=== PATIENT | male | born 1985 | race Caucasian/White ===

== ENCOUNTER 2016-07-06 13:54 | Emergency (ER) | payer SELFPAY ==
[~2016-07-06] VITALS: Ht 182.8 cm; Wt 102.1 kg
[2016-07-06 14:19] LABS: BASO % 0.4 % (0.0-1.0); EOS # 0.1 10*3/uL (0.0-0.4); EOS % 0.8 % (1.0-4.0); HEMATOCRIT 44.5 % (42.0-52.0); HEMOGLOBIN 15.6 g/dl (14.0-18.0); MEAN CELL VOLUME 85.2 fl (80.0-94.0); MEAN CORPUSCULAR HGB 29.9 pg (27.0-31.0); MEAN CORPUSCULAR HGB CONC 35.1 g/dl (33.0-37.0); MONO # 0.5 10*3/uL (0.1-1.0); MONO % 5.8 % (3.0-9.0); NEUT # 6.3 10*3/uL (2.3-7.9); NEUT % 70.9 % (47.0-73.0); PLATELET COUNT AUTOMATED 257 10*3/uL (130-400); RED BLOOD COUNT 5.22 10*6/uL (4.50-5.90); RED CELL DISTRI WIDTH 11.9 % (0-14.5); WHITE BLOOD COUNT 8.9 10*3/uL (4.8-10.8)
[2016-07-06 14:24] LABS: BILIRUBIN NEGATIVE (NEGATIVE); BLOOD 1+ (NEGATIVE); CLARITY CLEAR (CLEAR); COLOR YELLOW (YELLOW); GLUCOSE NEGATIVE (NEGATIVE); KETONE NEGATIVE (NEGATIVE); LEUKO ESTERASE NEGATIVE (NEGATIVE); NITRITE NEGATIVE (NEGATIVE); PH 6.5 (5.0-9.0); PROTEIN NEGATIVE (NEGATIVE); UROBILINOGEN 0.2 E.U./dl (0.2-1.0)
[2016-07-06 14:35] LABS: BACTERIA TRACE; MUCOUS TRACE; URINE REFLEX COMMENT YES (NO); WBC 0-2 wbc/hpf (0-5)
[2016-07-06 14:38] LABS: ALBUMIN 4.2 gm/dl (3.1-4.5); ALKALINE PHOSPHATASE 88 U/L (45-117); BILIRUBIN, TOTAL 0.4 mg/dl (0.2-1.0); BUN 11 mg/dl (7-24); CARBON DIOXIDE 27 mmol/L (21-32); CHLORIDE 107 mmol/L (98-107); EST GLOM FILT AFRICAN AMERICAN > 60 ml/min; GLUCOSE 100 mg/dL (65-99); POTASSIUM 3.9 mmol/L (3.5-5.1); SGOT/AST 11 IU/L (3-35); SGPT/ALT 21 U/L (12-78); SODIUM 140 mmol/L (136-145); TOTAL PROTEIN 7.6 gm/dL (6.4-8.2)
[2016-07-06] MEDS ORDERED: PERCOCET 325 MG1 TA2 PO (16:13)
[2016-07-06] MEDS ORDERED: FLOMAX0.4 MG PO (16:13)
[2016-07-06] MEDS ORDERED: BACTRIM DS 8001 TA1 PO (16:13)
[2016-07-06] MEDS ORDERED: ZOFRAN4 MG PO (16:13)
== END 2016-07-06 16:21 | disposition home or self-care (01) ==
LOC: ED 13:54
PROVIDERS: Nurse Practitioner Family
DX: N20.0 Calculus of kidney (principal); N13.30 Unspecified hydronephrosis; R03.0 Elevated blood-pressure reading, without diagnosis of hypertension; Z88.0 Allergy status to penicillin

== ENCOUNTER 2017-07-08 10:56 | Emergency (ER) | payer SELFPAY ==
[~2017-07-08] VITALS: Ht 182.8 cm; Wt 102.1 kg
[~2017-07-08 10:56] MED LIST: BACTRIM DS 8001 TA1 PO; FLOMAX0.4 MG PO; PERCOCET 325 MG1 TA2 PO; ZOFRAN4 MG PO
[2017-07-08 11:51] LABS: BASO % 0.4 % (0.0-1.0); EOS % 0.5 % (1.0-4.0); HEMATOCRIT 45.7 % (42.0-52.0); HEMOGLOBIN 15.9 g/dl (14.0-18.0); LYMPH # 1.2 10*3/uL (1.3-4.4); LYMPH % 15.6 % (27.0-41.0); MEAN CELL VOLUME 85.6 fl (80.0-94.0); MEAN CORPUSCULAR HGB 29.8 pg (27.0-31.0); MEAN CORPUSCULAR HGB CONC 34.8 g/dl (33.0-37.0); MEAN PLATELET VOLUME 9.2 fl (9.6-12.3); MONO # 0.6 10*3/uL (0.1-1.0); MONO % 7.4 % (3.0-9.0); NEUT % 75.7 % (47.0-73.0); PLATELET COUNT AUTOMATED 260 10*3/uL (130-400); RED BLOOD COUNT 5.34 10*6/uL (4.50-5.90); RED CELL DISTRI WIDTH 11.9 % (0-14.5)
[2017-07-08 11:51] LABS: BILIRUBIN 1+ (NEGATIVE); BLOOD 2+ (NEGATIVE); CLARITY SL CLOUDY (CLEAR); COLOR YELLOW (YELLOW); GLUCOSE NEGATIVE (NEGATIVE); KETONE 1+ (NEGATIVE); LEUKO ESTERASE TRACE (NEGATIVE); NITRITE NEGATIVE (NEGATIVE); PH 6.5 (5.0-9.0)
[2017-07-08 12:06] LABS: BACTERIA 1+; MUCOUS 1+; RBC 31-40 rbc/hpf (0-2)
[2017-07-08 12:06] LABS: ALBUMIN 4.4 gm/dl (3.1-4.5); ALKALINE PHOSPHATASE 84 U/L (45-117); BUN 8 mg/dl (7-24); CHLORIDE 105 mmol/L (98-107); CREATININE 1.03 mg/dL (0.70-1.30); SGOT/AST 12 IU/L (3-35); SGPT/ALT 21 U/L (12-78); SODIUM 141 mmol/L (136-145)
[2017-07-08] MEDS ORDERED: LEVOFLOXACIN500 MG PO (14:26)
== END 2017-07-08 14:38 | disposition home or self-care (01) ==
LOC: ED 10:56
PROVIDERS: Emergency Medicine
DX: N39.0 Urinary tract infection, site not specified (principal); N20.0 Calculus of kidney; Z88.0 Allergy status to penicillin

== ENCOUNTER 2018-03-11 16:23 | Emergency (ER) | payer OTHER ==
[~2018-03-11] VITALS: Ht 182.8 cm; Wt 99.8 kg
[~2018-03-11 16:23] MED LIST changes: +LEVOFLOXACIN500 MG PO
[2018-03-11] MEDS ORDERED: Motrin,Rufen800 MG PO (19:02)
== END 2018-03-11 19:20 | disposition home or self-care (01) ==
LOC: ED 16:23
DX: T70.0XXA Otitic barotrauma, initial encounter (principal); S20.212A Contusion of left front wall of thorax, initial encounter; S63.502A Unspecified sprain of left wrist, initial encounter; Z88.0 Allergy status to penicillin; V89.2XXA Person injured in unspecified motor-vehicle accident, traffic, initial encounter; W22.11XA Striking against or struck by driver side automobile airbag, initial encounter; Y93.I9 Activity, other involving external motion; Y92.488 Other paved roadways as the place of occurrence of the external cause; Y99.8 Other external cause status

== ENCOUNTER 2018-05-29 10:25 | Emergency (ER) | payer SELFPAY ==
[~2018-05-29] VITALS: Ht 182.8 cm; Wt 102.1 kg
--- NOTE | ~2018-05-29 | EKG ---
[place], [place] ELECTROCARDIOGRAM REPORT NAME: CELESTINA OREILLY UNIT #: [id number] ROOM: DOCTOR: SANCHEZ DRAFT REPORT BIRTHDATE: [birth year] [facility] Test Date: 2018-05-29 Test Time: 12:15:15 Pat Name: CELESTINA OREILLY Department: Room: Gender: Vaccinator: Chaya Schrader : 1985 Requested By: IKE HARRIS Order Number: [id number] Reading MD: Keo Gonzalez MD Measurements Intervals [place] Rate: 65 P: 3 TX: 144 QRS: 78 QRSD: 96 T: 21 QT: 376 QTc: 391 Interpretive Statements Sinus rhythm ST elev, probable normal early repol pattern Electronically Signed On 05-29-2018 13:27:24 PDT by Keo Gonzalez MD CM:[email or web address]:ELECTROCARDIOGRAM REPORT [id number] IKE DURAN DRAFT REPORT IKE HARRIS DO
[~2018-05-29 10:25] MED LIST changes: +Motrin,Rufen800 MG PO
[2018-05-29 11:12] LABS: BASO # 0.1 10*3/uL (0.0-0.1); BASO % 0.7 % (0.0-1.0); EOS # 0.2 10*3/uL (0.0-0.4); EOS % 2.2 % (1.0-4.0); HEMATOCRIT 45.6 % (42.0-52.0); HEMOGLOBIN 15.7 g/dl (14.0-18.0); LYMPH # 1.6 10*3/uL (1.3-4.4); LYMPH % 24.1 % (27.0-41.0); MEAN CELL VOLUME 87.7 fl (80.0-94.0); MEAN CORPUSCULAR HGB 30.2 pg (27.0-31.0); MEAN CORPUSCULAR HGB CONC 34.4 g/dl (33.0-37.0); MEAN PLATELET VOLUME 8.9 fl (9.6-12.3); MONO # 0.6 10*3/uL (0.1-1.0); NEUT # 4.3 10*3/uL (2.3-7.9); NEUT % 63.7 % (47.0-73.0); PLATELET COUNT AUTOMATED 225 10*3/uL (130-400); RED CELL DISTRI WIDTH 11.8 % (0-14.5); WHITE BLOOD COUNT 6.8 10*3/uL (4.8-10.8)
[2018-05-29 11:36] LABS: ALBUMIN 3.9 gm/dl (3.1-4.5); ALKALINE PHOSPHATASE 78 U/L (45-117); BUN 12 mg/dl (7-24); CHLORIDE 106 mmol/L (98-107); CREATININE 1.01 mg/dL (0.70-1.30); PHOSPHOROUS 3.3 mg/dL (2.5-4.9); SGOT/AST 12 IU/L (3-35); SGPT/ALT 23 U/L (12-78); SODIUM 140 mmol/L (136-145)
[2018-05-29 11:39] LABS: TROPONIN I < 0.015 ng/ml (<0.045)
== END 2018-05-29 13:15 | disposition home or self-care (01) ==
LOC: ED 10:25
PROVIDERS: Internal Medicine
DX: R55 Syncope and collapse (principal); R07.89 Other chest pain; R51 Headache; Z87.442 Personal history of urinary calculi; Z88.0 Allergy status to penicillin; Z79.899 Other long term (current) drug therapy

== ENCOUNTER 2019-01-04 16:35 | Emergency (ER) | payer SELFPAY ==
[~2019-01-04] VITALS: Ht 182.8 cm; Wt 97.5 kg
[2019-01-05 18:08] LABS: GONOCOCCUS BY NAA Negative (Negative)
== END 2019-01-04 18:18 | disposition home or self-care (01) ==
LOC: ED 16:35
PROVIDERS: Nurse Practitioner Family
DX: G89.29 Other chronic pain (principal); M25.561 Pain in right knee; J45.909 Unspecified asthma, uncomplicated; Z20.2 Contact with and (suspected) exposure to infections with a predominantly sexual mode of transmission; Z88.0 Allergy status to penicillin; Z79.899 Other long term (current) drug therapy

== ENCOUNTER 2019-03-03 17:04 | Emergency (ER) | payer SELFPAY ==
[~2019-03-03] VITALS: Ht 182.8 cm; Wt 95.3 kg
[2019-03-03 17:56] LABS: BASO % 0.7 % (0.0-1.0); EOS # 0.2 10*3/uL (0.0-0.4); EOS % 2.6 % (1.0-4.0); HEMATOCRIT 46.9 % (42.0-52.0); HEMOGLOBIN 15.9 g/dl (14.0-18.0); LYMPH # 1.9 10*3/uL (1.3-4.4); LYMPH % 32.1 % (27.0-41.0); MEAN CELL VOLUME 86.2 fl (80.0-94.0); MEAN CORPUSCULAR HGB 29.2 pg (27.0-31.0); MEAN CORPUSCULAR HGB CONC 33.9 g/dl (33.0-37.0); MEAN PLATELET VOLUME 8.8 fl (9.6-12.3); MONO # 0.4 10*3/uL (0.1-1.0); MONO % 7.6 % (3.0-9.0); NEUT # 3.3 10*3/uL (2.3-7.9); NEUT % 56.8 % (47.0-73.0); PLATELET COUNT AUTOMATED 291 10*3/uL (130-400); RED BLOOD COUNT 5.44 10*6/uL (4.50-5.90); RED CELL DISTRI WIDTH 11.9 % (0-14.5); WHITE BLOOD COUNT 5.8 10*3/uL (4.8-10.8)
[2019-03-03 18:14] LABS: ALBUMIN 4.6 gm/dl (3.1-4.5); ALKALINE PHOSPHATASE 105 U/L (45-117); BUN 10 mg/dl (7-24); CHLORIDE 105 mmol/L (98-107); CREATININE 0.97 mg/dL (0.70-1.30); POTASSIUM 4.1 mmol/L (3.5-5.1); SGOT/AST 32 IU/L (3-35); SGPT/ALT 61 U/L (12-78); SODIUM 139 mmol/L (136-145); TOTAL PROTEIN 8.2 gm/dL (6.4-8.2)
[2019-03-03 18:16] LABS: ACT PARTIAL THROMBO TIME 26.2 SECONDS (20.0-32.1); INTERNATIONAL NORM RATIO 0.9 (2.0-3.5)
[2019-03-03 18:17] LABS: TROPONIN I < 0.015 ng/ml (<0.045)
[2019-03-03] MEDS ORDERED: MUCINEX1200 M1 PO (20:27)
[2019-03-03] MEDS ORDERED: PROVENTIL HFA6.7 GM INH (20:27)
[2019-03-03] MEDS ORDERED: PREDNISONE20 M1 PO (20:27)
== END 2019-03-03 21:29 | disposition home or self-care (01) ==
LOC: ED 17:04
PROVIDERS: Emergency Medicine
DX: J20.9 Acute bronchitis, unspecified (principal); Z88.0 Allergy status to penicillin

== ENCOUNTER 2019-04-02 09:44 | Emergency (ER) | payer OTHER ==
[~2019-04-02] VITALS: Ht 182.9 cm; Wt 102.1 kg
[~2019-04-02 09:44] MED LIST changes: +MUCINEX1200 M1 PO; +PREDNISONE20 M1 PO; +PROVENTIL HFA6.7 GM INH
[2019-04-02 10:51] LABS: BASO % 0.6 % (0.0-1.0); EOS # 0.1 10*3/uL (0.0-0.4); EOS % 1.1 % (1.0-4.0); HEMATOCRIT 45.3 % (42.0-52.0); HEMOGLOBIN 15.6 g/dl (14.0-18.0); LYMPH # 1.3 10*3/uL (1.3-4.4); LYMPH % 21.7 % (27.0-41.0); MEAN CELL VOLUME 85.8 fl (80.0-94.0); MEAN CORPUSCULAR HGB 29.5 pg (27.0-31.0); MEAN CORPUSCULAR HGB CONC 34.4 g/dl (33.0-37.0); MONO # 0.6 10*3/uL (0.1-1.0); MONO % 9.1 % (3.0-9.0); NEUT # 4.1 10*3/uL (2.3-7.9); NEUT % 67.2 % (47.0-73.0); PLATELET COUNT AUTOMATED 274 10*3/uL (130-400); RED BLOOD COUNT 5.28 10*6/uL (4.50-5.90); RED CELL DISTRI WIDTH 11.9 % (0-14.5); WHITE BLOOD COUNT 6.2 10*3/uL (4.8-10.8)
[2019-04-02 11:16] LABS: ALBUMIN 4.3 gm/dl (3.1-4.5); ALKALINE PHOSPHATASE 74 U/L (45-117); BUN 12 mg/dl (7-24); CHLORIDE 106 mmol/L (98-107); CREATININE 1.09 mg/dL (0.70-1.30); POTASSIUM 3.6 mmol/L (3.5-5.1); SGOT/AST 14 IU/L (3-35); SGPT/ALT 31 U/L (12-78); SODIUM 137 mmol/L (136-145); TOTAL PROTEIN 7.4 gm/dL (6.4-8.2)
[2019-04-02 11:26] LABS: TROPONIN I < 0.015 ng/ml (<0.045)
[2019-04-02] MEDS ORDERED: IBU800 MG PO (11:39)
[2019-04-02] MEDS ORDERED: TESSALON PERLE100 MG PO (11:39)
[2019-04-02] MEDS ORDERED: ZITHROMAX500 MG PO (11:39)
[2019-04-02] MEDS ORDERED: PREDNISONE50 MG PO (11:39)
== END 2019-04-02 11:47 | disposition home or self-care (01) ==
LOC: ED 09:44
PROVIDERS: Nurse Practitioner Family
DX: J45.901 Unspecified asthma with (acute) exacerbation (principal); R09.1 Pleurisy; F17.200 Nicotine dependence, unspecified, uncomplicated; Z88.0 Allergy status to penicillin; Z79.899 Other long term (current) drug therapy

== ENCOUNTER 2019-07-26 21:25 | Emergency (ER) | payer OTHER ==
[~2019-07-26] VITALS: Ht 182.8 cm; Wt 97.5 kg
[~2019-07-26 21:25] MED LIST changes: +IBU800 MG PO; +PREDNISONE50 MG PO; +TESSALON PERLE100 MG PO; +ZITHROMAX500 MG PO
== END 2019-07-26 22:21 | disposition home or self-care (01) ==
LOC: ED 21:25
DX: T15.82XA Foreign body in other and multiple parts of external eye, left eye, initial encounter (principal); J45.909 Unspecified asthma, uncomplicated; Z88.0 Allergy status to penicillin; Z79.899 Other long term (current) drug therapy; X58.XXXA Exposure to other specified factors, initial encounter; Y93.89 Activity, other specified; Y92.89 Other specified places as the place of occurrence of the external cause; Y99.8 Other external cause status

== ENCOUNTER 2019-10-11 10:26 | Emergency (ER) | payer OTHER ==
[2019-10-11 10:56] LABS: BASO % 0.7 % (0.0-1.0); EOS # 0.1 10*3/uL (0.0-0.4); EOS % 2.2 % (1.0-4.0); LYMPH # 1.4 10*3/uL (1.3-4.4); LYMPH % 25.2 % (27.0-41.0); MEAN CELL VOLUME 86.5 fl (80.0-94.0); MEAN CORPUSCULAR HGB CONC 33.6 g/dl (33.0-37.0); MEAN PLATELET VOLUME 9.1 fl (9.6-12.3); MONO # 0.4 10*3/uL (0.1-1.0); MONO % 7.6 % (3.0-9.0); NEUT # 3.5 10*3/uL (2.3-7.9); NEUT % 64.1 % (47.0-73.0); PLATELET COUNT AUTOMATED 250 10*3/uL (130-400); RED CELL DISTRI WIDTH 11.7 % (0-14.5); WHITE BLOOD COUNT 5.5 10*3/uL (4.8-10.8)
[2019-10-11 11:08] LABS: ACT PARTIAL THROMBO TIME 26.6 SECONDS (20.0-32.1)
[2019-10-11 11:15] LABS: ALBUMIN 3.8 gm/dl (3.1-4.5); ALKALINE PHOSPHATASE 76 U/L (45-117); BUN 11 mg/dl (7-24); CHLORIDE 109 mmol/L (98-107); CREATININE 0.98 mg/dL (0.70-1.30); POTASSIUM 4.1 mmol/L (3.5-5.1); SGOT/AST 16 IU/L (3-35); SGPT/ALT 24 U/L (12-78); SODIUM 139 mmol/L (136-145); TOTAL PROTEIN 7.2 gm/dL (6.4-8.2)
[2019-10-11 11:16] LABS: LIPASE 49 U/L (73-393)
[2019-10-11 11:18] LABS: TROPONIN I < 0.015 ng/ml (<0.045)
[2019-10-11] MEDS ORDERED: Motrin,Rufen800 MG PO (12:35)
== END 2019-10-11 12:50 | disposition home or self-care (01) ==
LOC: ED 10:26
PROVIDERS: Emergency Medicine
DX: R07.89 Other chest pain (principal); J45.909 Unspecified asthma, uncomplicated

== ENCOUNTER 2020-10-12 09:42 | Emergency (ER) | payer SELFPAY ==
[~2020-10-12] VITALS: Ht 182.8 cm; Wt 88.5 kg
[2020-10-12 10:57] LABS: BASO % 0.5 % (0.0-1.0); EOS # 0.1 10*3/uL (0.0-0.4); EOS % 2.4 % (1.0-4.0); HEMATOCRIT 43.3 % (42.0-52.0); LYMPH # 1.7 10*3/uL (1.3-4.4); LYMPH % 28.7 % (27.0-41.0); MEAN CELL VOLUME 88.2 fl (80.0-94.0); MEAN CORPUSCULAR HGB 29.7 pg (27.0-31.0); MEAN CORPUSCULAR HGB CONC 33.7 g/dl (33.0-37.0); MEAN PLATELET VOLUME 8.9 fl (9.6-12.3); MONO # 0.5 10*3/uL (0.1-1.0); MONO % 8.9 % (3.0-9.0); NEUT # 3.5 10*3/uL (2.3-7.9); NEUT % 59.2 % (47.0-73.0); PLATELET COUNT AUTOMATED 233 10*3/uL (130-400); RED BLOOD COUNT 4.91 10*6/uL (4.50-5.90); RED CELL DISTRI WIDTH 11.9 % (0-14.5); WHITE BLOOD COUNT 5.9 10*3/uL (4.8-10.8)
[2020-10-12 11:11] LABS: ALBUMIN 4.2 gm/dl (3.1-4.5); ALKALINE PHOSPHATASE 73 U/L (45-117); BUN 12 mg/dl (7-24); CHLORIDE 106 mmol/L (98-107); CREATININE 0.97 mg/dL (0.70-1.30); LIPASE 51 U/L (73-393); SGOT/AST 19 IU/L (3-35); SGPT/ALT 28 U/L (12-78); SODIUM 138 mmol/L (136-145); TOTAL PROTEIN 7.3 gm/dL (6.4-8.2)
[2020-10-12 13:50] LABS: BILIRUBIN Negative (Negative); BLOOD Negative (Negative); CLARITY Clear (Clear); COLOR Yellow (Yellow); GLUCOSE Negative (Negative); KETONE Negative (Negative); LEUKO ESTERASE Negative (Negative); NITRITE Negative (Negative); SPECIFIC GRAVITY >= 1.030 (1.001-1.030)
== END 2020-10-12 15:01 | disposition home or self-care (01) ==
LOC: ED 09:42
PROVIDERS: Emergency Medicine
DX: R10.31 Right lower quadrant pain (principal); Z88.0 Allergy status to penicillin

== ENCOUNTER 2022-07-11 08:15 | Emergency (ER) | payer OTHER ==
[~2022-07-11] VITALS: Ht 182.8 cm; Wt 104.3 kg
== END 2022-07-11 09:19 | disposition home or self-care (01) ==
LOC: ED 08:15
DX: S05.01XA Injury of conjunctiva and corneal abrasion without foreign body, right eye, initial encounter (principal); H20.9 Unspecified iridocyclitis; Z88.0 Allergy status to penicillin; W22.8XXA Striking against or struck by other objects, initial encounter; Y93.89 Activity, other specified; Y92.89 Other specified places as the place of occurrence of the external cause; Y99.8 Other external cause status

== ENCOUNTER 2022-08-26 17:26 | Emergency (ER) | payer OTHER ==
[~2022-08-26] VITALS: Ht 182.8 cm; Wt 102.1 kg
[2022-08-26] MEDS ORDERED: VIBRA-TAB100 MG PO (18:47)
== END 2022-08-26 18:56 | disposition home or self-care (01) ==
LOC: ED 17:26
DX: L03.213 Periorbital cellulitis (principal); Z88.0 Allergy status to penicillin

== ENCOUNTER 2023-01-12 17:20 | Emergency (ER) | payer SELFPAY ==
[~2023-01-12] VITALS: Ht 182.8 cm; Wt 81.6 kg
[~2023-01-12 17:20] MED LIST changes: +VIBRA-TAB100 MG PO
[2023-01-12 18:03] LABS: BASO # 0.1 10*3/uL (0.0-0.1); BASO % 0.7 % (0.0-1.0); EOS # 0.3 10*3/uL (0.0-0.4); EOS % 4.9 % (1.0-4.0); HEMATOCRIT 45.1 % (42.0-52.0); LYMPH % 29.6 % (27.0-41.0); MEAN CELL VOLUME 86.4 fl (80.0-94.0); MEAN CORPUSCULAR HGB 29.7 pg (27.0-31.0); MEAN CORPUSCULAR HGB CONC 34.4 g/dl (33.0-37.0); MEAN PLATELET VOLUME 8.8 fl (9.6-12.3); MONO # 0.6 10*3/uL (0.1-1.0); MONO % 8.8 % (3.0-9.0); NEUT # 3.8 10*3/uL (2.3-7.9); NEUT % 55.9 % (47.0-73.0); PLATELET COUNT AUTOMATED 250 10*3/uL (130-400); RED BLOOD COUNT 5.22 10*6/uL (4.50-5.90); WHITE BLOOD COUNT 6.8 10*3/uL (4.8-10.8)
[2023-01-12 18:24] LABS: ALKALINE PHOSPHATASE 84 U/L (46-116); BUN 12 mg/dl (9-23); CHLORIDE 104 mmol/L (98-107); POTASSIUM 3.5 mmol/L (3.4-5.1); SGPT/ALT 31 U/L (5-49); TOTAL PROTEIN 6.8 gm/dL (6.0-8.0)
[2023-01-12] MEDS ORDERED: PREDNISONE20 M1 PO (18:30)
== END 2023-01-12 21:57 | disposition home or self-care (01) ==
LOC: ED 17:20
PROVIDERS: Emergency Medicine
DX: J45.901 Unspecified asthma with (acute) exacerbation (principal); R42 Dizziness and giddiness; M79.10 Myalgia, unspecified site; Z88.0 Allergy status to penicillin

== ENCOUNTER 2023-04-08 17:08 | Emergency (ER) | payer OTHER | END 2023-04-08 17:57 | disposition home or self-care (01) | LOC: ED 17:08 | DX: S91.331A Puncture wound without foreign body, right foot, initial encounter (principal); Z88.0 Allergy status to penicillin; W22.8XXA Striking against or struck by other objects, initial encounter; Y93.89 Activity, other specified; Y92.89 Other specified places as the place of occurrence of the external cause; Y99.0 Civilian activity done for income or pay ==

== ENCOUNTER 2024-03-18 13:04 | Emergency (ER) | payer OTHER ==
[~2024-03-18] VITALS: Wt 104.3 kg
[2024-03-18] MEDS ORDERED: Acetaminophen/Hydrocodone 5 MG/325 MG TABLET PO ONE (13:25)
[2024-03-18] MEDS ORDERED: HYDROCODONE-AC1 EAC1 PO (14:29)
== END 2024-03-18 15:01 | disposition home or self-care (01) ==
LOC: ED 13:04
DX: S20.211A Contusion of right front wall of thorax, initial encounter (principal); Z88.0 Allergy status to penicillin; W00.0XXA Fall on same level due to ice and snow, initial encounter; Y93.89 Activity, other specified; Y92.89 Other specified places as the place of occurrence of the external cause; Y99.8 Other external cause status

== ENCOUNTER → 2024-04-13 | Outpatient (CLI) | payer OTHER ==
[~2024-04-13] MED LIST changes: +HYDROCODONE-AC1 EAC1 PO
[2024-04-13 17:00] LABS: BASO # 0.1 10*3/uL (0.0-0.1); EOS # 0.2 10*3/uL (0.0-0.4); EOS % 3.7 % (1.0-4.0); HEMATOCRIT 44.7 % (42.0-52.0); MEAN CELL VOLUME 89.8 fl (80.0-94.0); MEAN CORPUSCULAR HGB 29.7 pg (27.0-31.0); MEAN CORPUSCULAR HGB CONC 33.1 g/dl (33.0-37.0); MEAN PLATELET VOLUME 10.5 fl (9.6-12.3); MONO # 0.6 10*3/uL (0.1-1.0); MONO % 9.7 % (3.0-9.0); NEUT # 3.8 10*3/uL (2.3-7.9); PLATELET COUNT AUTOMATED 277 10*3/uL (130-400); RED BLOOD COUNT 4.98 10*6/uL (4.50-5.90); RED CELL DISTRI WIDTH 12.5 % (0-14.5); WHITE BLOOD COUNT 6.3 10*3/uL (4.8-10.8)
[2024-04-13 17:19] LABS: ALKALINE PHOSPHATASE 94 U/L (46-116); BUN 8 mg/dl (9-23); CHLORIDE 104 mmol/L (98-107); CHOLESTEROL 221 mg/dL (<200); POTASSIUM 4.2 mmol/L (3.4-5.1); SGPT/ALT 43 U/L (5-49); TOTAL PROTEIN 6.6 gm/dL (6.0-8.0); TRIGLYCERIDES 496 mg/dl (<150)
== END | disposition home or self-care (01) ==
LOC: ZRHCWE
PROVIDERS: ATTEND Nurse Practitioner Family
DX: Z13.220 Encounter for screening for lipoid disorders (principal)

== ENCOUNTER 2024-05-13 17:19 | Emergency (ER) | payer OTHER ==
[~2024-05-13] VITALS: Wt 99.8 kg
[2024-05-13] MEDS ORDERED: Acetaminophen/Hydrocodone 5 MG/325 MG TABLET PO ONE (17:35)
[2024-05-13] MEDS ORDERED: NAPROSYN500 MG PO (19:56)
== END 2024-05-13 20:03 | disposition home or self-care (01) ==
LOC: ED 17:19
DX: R07.81 Pleurodynia (principal); Z88.0 Allergy status to penicillin; Z79.899 Other long term (current) drug therapy

== ENCOUNTER 2024-05-31 12:05 | Emergency (ER) | payer OTHER ==
[~2024-05-31] VITALS: Ht 182.8 cm; Wt 99.8 kg
[~2024-05-31 12:05] MED LIST changes: +NAPROSYN500 MG PO
[2024-05-31] MEDS ORDERED: SODIUM CHLORIDE 0.9% 1,000 ML IV ONE (12:30)
[2024-05-31] MEDS ORDERED: Ondansetron Hydrochloride 4 MG/2 ML VIAL IV ONE (12:35)
[2024-05-31] MEDS ORDERED: Ketorolac Tromethamine 30 MG/ML VIAL IV ONE (12:35)
[2024-05-31] MEDS ORDERED: ACETAMINOPHEN 325 MG TAB PO ONE (12:35)
[2024-05-31 12:44] LABS: HEMATOCRIT 43.8 % (42.0-52.0); MEAN CELL VOLUME 86.9 fl (80.0-94.0); MEAN CORPUSCULAR HGB 29.6 pg (27.0-31.0); MEAN PLATELET VOLUME 8.7 fl (9.6-12.3); PLATELET COUNT AUTOMATED 202 10*3/uL (130-400); RED BLOOD COUNT 5.04 10*6/uL (4.50-5.90); WHITE BLOOD COUNT 11.4 10*3/uL (4.8-10.8)
[2024-05-31 12:54] LABS: MANUAL DIFF REFLEX YES
[2024-05-31 13:05] LABS: ATYPICAL LYMPHS 3 % (0-0); TOTAL CELLS COUNTED 100 #CELLS
[2024-05-31 13:06] LABS: PLATELET SUFFICIENCY NORMAL (NORMAL)
[2024-05-31 13:07] LABS: ALKALINE PHOSPHATASE 82 U/L (46-116); BUN 12 mg/dl (9-23); CHLORIDE 104 mmol/L (98-107); LIPASE 25 U/L (12-53); SGPT/ALT 13 U/L (5-49); TOTAL PROTEIN 6.8 gm/dL (6.0-8.0)
[2024-05-31] MEDS ORDERED: Ondansetron4 MG PO (13:58)
== END 2024-05-31 14:29 | disposition home or self-care (01) ==
LOC: ED 12:05
PROVIDERS: Nurse Practitioner Family
DX: B34.9 Viral infection, unspecified (principal); Z20.822 Contact with and (suspected) exposure to COVID-19; R11.2 Nausea with vomiting, unspecified; R19.7 Diarrhea, unspecified; R07.89 Other chest pain; J45.909 Unspecified asthma, uncomplicated; Z87.442 Personal history of urinary calculi

== ENCOUNTER → 2024-06-07 | Outpatient (CLI) | payer OTHER ==
[~2024-06-07] MED LIST changes: +Ondansetron4 MG PO
== END | disposition home or self-care (01) ==
LOC: CARD 05-26 02:10
PROVIDERS: ATTEND Internal Medicine Cardiovascular Disease
DX: R00.1 Bradycardia, unspecified (principal); R07.89 Other chest pain

== ENCOUNTER 2024-08-28 19:05 | Emergency (ER) | payer OTHER ==
[~2024-08-28] VITALS: Ht 182.8 cm; Wt 97.5 kg
[2024-08-28] MEDS ORDERED: Acetaminophen/Oxycodone 5 MG/325 MG TABLET PO ONE (19:40)
[2024-08-28] MEDS ORDERED: NAPROSYN500 MG PO (22:33)
== END 2024-08-28 23:00 | disposition home or self-care (01) ==
LOC: ED 19:05
DX: S86.911A Strain of unspecified muscle(s) and tendon(s) at lower leg level, right leg, initial encounter (principal); J44.9 Chronic obstructive pulmonary disease, unspecified; Z88.0 Allergy status to penicillin; Z87.442 Personal history of urinary calculi; V86.55XA Driver of 3- or 4- wheeled all-terrain vehicle (ATV) injured in nontraffic accident, initial encounter; Y93.I9 Activity, other involving external motion; Y92.488 Other paved roadways as the place of occurrence of the external cause; Y99.8 Other external cause status

== ENCOUNTER → 2024-09-10 | Outpatient (CLI) | payer OTHER ==
[2024-09-10 18:09] LABS: BASO # 0.1 10*3/uL (0.0-0.1); BASO % 1.4 % (0.0-1.0); EOS # 0.4 10*3/uL (0.0-0.4); EOS % 6.6 % (1.0-4.0); MEAN CELL VOLUME 91.0 fl (80.0-94.0); MEAN CORPUSCULAR HGB 28.9 pg (27.0-31.0); MEAN PLATELET VOLUME 9.5 fl (9.6-12.3); MONO # 0.5 10*3/uL (0.1-1.0); MONO % 9.3 % (3.0-9.0); NEUT # 3.3 10*3/uL (2.3-7.9); NEUT % 59.2 % (47.0-73.0); NUCLEATED RED BLOOD CELL 0.0 % (0.0-0.0); NUCLEATED RED BLOOD CELL 0.0 10*3/uL (0.0-0.0); PLATELET COUNT AUTOMATED 270 10*3/uL (130-400); RED CELL DISTRI WIDTH 12.2 % (0-14.5)
[2024-09-10 18:30] LABS: BUN 14 mg/dl (9-23); LDL CHOLESTEROL 115 mg/dL (9-159); SGPT/ALT 43 U/L (5-49)
== END | disposition home or self-care (01) ==
LOC: LAB 10:23
PROVIDERS: ATTEND Nurse Practitioner Family
DX: Z13.1 Encounter for screening for diabetes mellitus (principal); Z13.0 Encounter for screening for diseases of the blood and blood-forming organs and certain disorders involving the immune mechanism; Z13.29 Encounter for screening for other suspected endocrine disorder; Z13.220 Encounter for screening for lipoid disorders

== ENCOUNTER → 2024-09-13 | Outpatient (CLI) | payer OTHER | END | disposition home or self-care (01) | LOC: MRI 08:42 | PROVIDERS: ATTEND Orthopaedic Surgery | DX: S83.241A Other tear of medial meniscus, current injury, right knee, initial encounter (principal); S83.211A Bucket-handle tear of medial meniscus, current injury, right knee, initial encounter; M71.21 Synovial cyst of popliteal space [Baker], right knee; M25.461 Effusion, right knee; X58.XXXA Exposure to other specified factors, initial encounter; Y93.89 Activity, other specified; Y92.89 Other specified places as the place of occurrence of the external cause; Y99.8 Other external cause status ==